=== PATIENT | male | born 1975 | race Two or more races ===

== ENCOUNTER 2020-11-18 19:54 | Emergency (ER) | payer SELFPAY ==
--- NOTE | 2020-11-18 21:09 | EDM.PDOC ---
ED HPI GENERAL MEDICAL PROBLEM - General Chief Complaint: Lower Extremity Injury/Pain Stated Complaint: NECK PAIN Time Seen by Provider: 11/18/20 20:03 Source of Information: Reports: Patient History Limitations: Reports: No Limitations - History of Present Illness INITIAL COMMENTS - FREE TEXT/NARRATIVE: The patient presents with right testicle pain. He says this has been going on for about 3 weeks. He denies any injury. He says there is swelling at times. Lifting does not make it worse. He has no pain with urination. There is no sores or discharge. He is worried the testicle may be twisted. He has no fever, chills, cough, chest pain, shortness of breath, nausea or vomiting. He says sometimes the pain goes up to his right abdomen. Onset: Gradual Duration: Week(s): Location: Reports: Other (right testicle) Quality: Reports: Sharp Severity: Moderate Improves with: Reports: None Worsens with: Reports: None Associated Symptoms: Reports: No Other Symptoms Right Groin Pain Score (Numeric/FACES): 8 - Related Data Allergies Allergy/AdvReac Type Severity Reaction Status Date / Time No Known Allergies Allergy Verified 11/18/20 20:04 Home Meds: Home Meds . [No Known Home Meds] 11/18/20 [History] Social & Family History - Tobacco Use Tobacco Use Status *Q: Current Every Day Tobacco User Years of Tobacco use: 25 Packs/Tins Daily: 0.7 - Caffeine Use Caffeine Use: Reports: Energy Drinks, Soda - Recreational Drug Use Recreational Drug Use: Yes Recreational Drug Type: Reports: Marijuana/Hashish Review of Systems - Review of Systems Review Of Systems: See Below Constitutional: Reports: No Symptoms Eyes: Reports: No Symptoms Ears: Reports: No Symptoms Nose: Reports: No Symptoms Mouth/Throat: Reports: No Symptoms Respiratory: Reports: No Symptoms Cardiovascular: Reports: No Symptoms GI/Abdominal: Reports: No Symptoms Genitourinary: Reports: Other (right testicle pain) ED EXAM, GENERAL - Physical Exam Exam: See Below Exam Limited By: No Limitations General Appearance: Alert, No Apparent Distress Ears: Normal External Exam Nose: Normal Inspection Head: Atraumatic, Normocephalic Neck: Normal Inspection Respiratory/Chest: No Respiratory Distress, Lungs Clear, Normal Breath Sounds Cardiovascular: Regular Rate, Rhythm, No Edema, No Murmur GI/Abdominal: Soft, Non-Tender, No Organomegaly, No Mass (Male) Exam: Testicular Tenderness (R), Other (No discharge or rashed. Pain upon palpation to the right testicle and no hernia felt.) Course - Vital Signs Last Recorded V/S: Last Vital Signs Temp 96.9 F 11/18/20 20:02 Pulse 115 H 11/18/20 20:02 Resp 18 11/18/20 20:02 BP 151/99 H 11/18/20 20:02 Pulse Ox 98 11/18/20 20:02 - Orders/Labs/Meds Orders: Active Orders 24 hr Category Date Time Status Scrotum and Contents [US] Stat Exams 11/18/20 20:32 Taken Labs: Laboratory Tests 11/18/20 Range/Units 20:36 Urine Color Yellow (Yellow) Urine Appearance Clear (Clear) Urine pH 7.0 (5.0-8.0) Ur Specific [place] 1.020 (1.005-1.030) Urine Protein Negative (Negative) Urine Glucose (UA) 2+ H (Negative) Urine Ketones Negative (Negative) Urine Occult Blood Negative (Negative) Urine Nitrite Negative (Negative) Urine Bilirubin Negative (Negative) Urine Urobilinogen 0.2 (0.2-1.0) Ur Leukocyte Esterase Negative (Negative) - Re-Assessments/Exams Free Text/Narrative Re-Assessment/Exam: 11/18/20 21:09 I ordered an US of the scrotum and a UA. His UA shows no UTI. 11/18/20 21:58 His US shows normal testicles. 2 hyperechoic foci present in the inferior to the right testicle, the largest measuring 3mm. These may represent vascular calcifications. Small right hydrocele. 3 X 3 X 2 mm left epididymal cyst. It appears he has a hydrocele. I will discharge him home. Departure - Departure Time of Disposition: 22:00 Disposition: Home, Self-Care 01 Condition: Good Clinical Impression: Hydrocele Qualifiers: Hydrocele type: other Qualified Code(s): N43.2 - Other hydrocele - Discharge Information *PRESCRIPTION DRUG MONITORING PROGRAM REVIEWED*: Not Applicable *COPY OF PRESCRIPTION DRUG MONITORING REPORT IN PATIENT ANNABELLA: Not Applicable Referrals: PCP,None [Primary Care Provider] - Tk Chambers MD [Ordering Only Provider] - 2 Weeks Forms: ED Department Discharge Additional Instructions: Take tylenol or motrin for pain. Drink plenty of fluids. If the pain gets worse, follow up with Dr Chambers a urologist in [place] or one of his partners. Please return if you are worse. Sepsis Event Note (ED) - Evaluation Sepsis Screening Result: No Definite Risk - Focused Exam Vital Signs: Vital Signs Temp Pulse Resp BP Pulse Ox 11/18/20 20:02 96.9 F 115 H 18 151/99 H 98 - My Orders Last 24 Hours: My Active Orders 11/18/20 20:32 Scrotum and Contents [US] Stat - Assessment/Plan Last 24 Hours: My Active Orders 11/18/20 20:32 Scrotum and Contents [US] Stat
--- NOTE | 2020-11-19 08:15 | US ---
Testicular ultrasound: Multiple real-time images of both testicles were obtained. Both testicles are normal in location. Both testicles show normal homogeneous appearance without intratesticular abnormality. Both arterial and venous blood flow are seen within the testicles. Two small hyperechoic areas are seen inferior to the right testicle. These most likely represent minimal and incidental scrotoliths. Small amount of fluid is seen on the right side compatible with minimal hydrocele. Small epididymal cyst is noted on the left side measuring 3 mm. Measurements: Right testicle: 5.4 x 2.7 x 3.5 cm Left testicle: 5.0 x 2.6 x 3.2 cm Impression: 1. Two small scrotoliths inferior to the right testicle. These are incidental findings. 2. Small hydrocele on the right side. Small epididymal cyst is noted on the left side. 3. No intratesticular abnormality is seen. Diagnostic code #2 I agree with preliminary report from [facility], finalized on 11/18/20, 10:20 PM CDT, code 1
== END 2020-11-18 22:33 | disposition home or self-care (01) ==
LOC: JD.ED 19:54
DX: N43.2 Other hydrocele (principal); Z72.0 Tobacco use
CPT/HCPCS: 76870; 76870-26; 81003; 93975; 99283; 99284-25

== ENCOUNTER 2021-03-16 13:36 | Emergency (ER) | payer SELFPAY ==
--- NOTE | 2021-03-16 14:48 | EDM.PDOC ---
ED HPI GENERAL MEDICAL PROBLEM - General Chief Complaint: Back Pain or Injury Stated Complaint: PULLED A GROIN Time Seen by Provider: 03/16/21 13:53 Source of Information: Reports: Patient, RN Notes Reviewed - History of Present Illness INITIAL COMMENTS - FREE TEXT/NARRATIVE: 45 yr old male comes in with R groin pain. He has had that for over 2 months. He did have a prior ED visit, scan and was told he had a small hydrocele. The pain comes and goes, worse the past couple of day. No voiding sx. Occasional mild radiation to back. No nausea, vomiting, fever or chills. Right Groin Pain Score (Numeric/FACES): 8 - Related Data Allergies Allergy/AdvReac Type Severity Reaction Status Date / Time No Known Allergies Allergy Verified 03/16/21 13:54 Home Meds: Home Meds . [No Known Home Meds] 11/18/20 [History] Past Medical History - Past Health History Medical/Surgical History: Denies Medical/Surgical History Social & Family History - Tobacco Use Tobacco Use Status *Q: Current Every Day Tobacco User Years of Tobacco use: 20 Packs/Tins Daily: 1 - Caffeine Use Caffeine Use: Reports: Energy Drinks, Soda ED ROS GENERAL - Review of Systems Review Of Systems: See Below Constitutional: Denies: Fever, Chills, Diaphoresis HEENT: Reports: No Symptoms Respiratory: Reports: No Symptoms Cardiovascular: Reports: No Symptoms GI/Abdominal: Reports: No Symptoms : Denies: Dysuria, Hematuria, Pain Musculoskeletal: Reports: Back Pain (occasional, mild) Skin: Reports: No Symptoms Neurological: Reports: No Symptoms ED EXAM, GENERAL - Physical Exam Exam: See Below General Appearance: Alert, No Apparent Distress Respiratory/Chest: No Respiratory Distress GI/Abdominal: Soft, Non-Tender (Male) Exam: Scrotum Tenderness (R), Testicular Tenderness (R), Other (R testicle is riding mildly higer than the left, no warmth or erythema. no evidence for hernia at time of exam). No: Scrotal Swelling, Testicular Mass Course - Vital Signs Last Recorded V/S: Last Vital Signs Temp 98.5 F 03/16/21 13:51 Pulse 107 H 03/16/21 13:51 Resp 18 03/16/21 13:51 BP 148/102 H 03/16/21 13:51 Pulse Ox 100 03/16/21 13:51 - Orders/Labs/Meds Labs: Laboratory Tests 03/16/21 Range/Units 15:00 Urine Color Yellow (Yellow) Urine Appearance Clear (Clear) Urine pH 7.0 (5.0-8.0) Ur Specific [place] 1.015 (1.005-1.030) Urine Protein Negative (Negative) Urine Glucose (UA) 2+ H (Negative) Urine Ketones Negative (Negative) Urine Occult Blood Negative (Negative) Urine Nitrite Negative (Negative) Urine Bilirubin Negative (Negative) Urine Urobilinogen 0.2 (0.2-1.0) Ur Leukocyte Esterase Negative (Negative) - Re-Assessments/Exams Free Text/Narrative Re-Assessment/Exam: 03/17/21 14:52 Ua normal, repeat scrotum US ordered but patient later refused when it was time to get it done. Departure - Departure Time of Disposition: 16:18 Disposition: Home, Self-Care 01 Condition: Fair Clinical Impression: Rt groin pain, Chronic hydrocele - Discharge Information Instructions: Hydrocele, Adult Referrals: PCP,None [Primary Care Provider] - Forms: ED Department Discharge Additional Instructions: You may alternate tylenol and ibuprofen as needed for discomfort. See Dr Paz, General Surgeon at [facility] for further eval and treatment. Call [phone] for appointment. Sepsis Event Note (ED) - Evaluation Sepsis Screening Result: No Definite Risk
== END 2021-03-16 16:40 | disposition home or self-care (01) ==
LOC: JD.ED 13:36
DX: N43.3 Hydrocele, unspecified (principal); Z72.0 Tobacco use
CPT/HCPCS: 81003; 99283

== ENCOUNTER 2022-01-31 23:36 | Emergency (ER) | payer SELFPAY ==
[2022-02-01] MEDS ORDERED: Lidocaine 1% 20 ML MDV INJECT ONE (01:35)
[2022-02-01] MEDS ORDERED: Lidocaine 1% 10 ML MDV INJECT ONE (01:39)
[2022-02-01] MEDS ORDERED: fentaNYL 100 MCG/2 ML SDV IVPUSH ONE (01:55)
[2022-02-01] MEDS ORDERED: Clindamycin Phosphate in D5W 900 MG in Premix Bag 1 BAG IV ONE ×2 (02:54)
== END 2022-02-01 03:47 | disposition home or self-care (01) ==
LOC: JD.ED 23:36
DX: L02.811 Cutaneous abscess of head [any part, except face] (principal); Z72.0 Tobacco use
CPT/HCPCS: 10060; 87070; 87075; 87077; 87186; 87205; 96365; 96375; 99283; J3010; J3490

== ENCOUNTER 2024-03-18 02:11 | Emergency (ER) | payer SELFPAY ==
[2024-03-18] MEDS: Oxymetazoline 0.05% Nasal Spray 30 ML Bottle NAS ONE (02:33)
[2024-03-18 02:38] LABS: BASOPHILS PERCENT AUTO 0.5 % (0.0-1.0); EOSINOPHILS ABSOLUTE AUTO 0.3 K/mm3 (0.0-0.4); HEMATOCRIT 40.3 % (42.0-52.0); HEMOGLOBIN 13.8 gm/dl (14.0-18.0); IMMATURE GRAN ABSOLUTE AUTO 0.02 K/mm3 (0.00-0.05); IMMATURE GRAN PERCENT AUTO 0.3 % (0.0-0.4); LYMPHOCYTES ABSOLUTE AUTO 2.7 K/mm3 (1.0-4.8); LYMPHOCYTES PERCENT AUTO 35.3 % (24.0-44.0); MEAN CORPUSCULAR HEMOGLOBIN 31.3 pg (28.0-32.0); MEAN CORPUSCULAR HGB CONC 34.2 g/dl (32.0-36.0); MEAN CORPUSCULAR VOLUME 91.4 fl (83.0-99.0); MONOCYTES ABSOLUTE AUTO 0.7 K/mm3 (0.0-0.8); NEUTROPHILS ABSOLUTE AUTO 3.9 K/mm3 (1.8-7.7); NEUTROPHILS PERCENT AUTO 50.9 % (41.0-71.0); PLATELET COUNT,PLT 341 K/mm3 (150-400); RED BLOOD CELL COUNT 4.41 M/mm3 (4.52-5.90); WHITE BLOOD CELL COUNT,WBC 7.68 K/mm3 (3.9-11.3)
[2024-03-18 02:58] LABS: INR 1.03; PROTHROMBIN TIME 10.9 SECONDS (9.7-12.0)
[2024-03-18 03:03] LABS: ALBUMIN 3.5 g/dl (3.4-5.0); ANION GAP 10.9 (5-15); BILIRUBIN TOTAL 0.3 mg/dL (0.2-1.0); CALCIUM 8.6 mg/dL (8.5-10.1); EST CRCL DRUG DOSING (CG) 92.3 mL/min; POTASSIUM,K 3.9 mEq/L (3.5-5.1); PROTEIN TOTAL,TP 6.9 g/dl (6.4-8.2)
== END 2024-03-18 03:49 | disposition home or self-care (01) ==
LOC: JD.ED 02:11
DX: R04.0 Epistaxis (principal); D64.9 Anemia, unspecified; R94.5 Abnormal results of liver function studies; F17.210 Nicotine dependence, cigarettes, uncomplicated
CPT/HCPCS: 30901; 36415; 80053; 85025; 85610; 99283; A9270